=== PATIENT | male | born 1945 | race Caucasian/White ===

== ENCOUNTER 2018-01-19 04:51 | Emergency (ER) | payer OTHER, MEDICAID ==
[~2018-01-19] VITALS: Ht 172.7 cm; Wt 78.0 kg
[~2018-01-19 04:51] MED LIST: ACETAMINOPHEN325 M1 OR; ASPIR 8181 MG PO; ASPIRIN325 OR; ATORVASTATIN CA40 MG PO; BACLOFEN20 MG PO; CALCIUM 500 +1 EAC5 PO; COLACE100 MG PO; COREG OR; COREG6.25 MG PO; COUMADIN 5 MG TA5 M1; CYMBALTA60 MG PO; DIABETA 5MG TABL5 MG PO; DIAZEPAM2.5 MG PO; DULCOLAX STOOL100 MG OR; DUONEB 2.5-0.5 M3 ML INH; FLOMAX0.4 MG PO; GLUCOPHAGE1000 MG PO; HUMALOG100 UNIT/1 SUBQ; HYDROCODON-ACE1 EAC7 PO; INSPRA25 MG PO; KEFLEX500 MG PO; LANTUS100 UNIT/M SUBQ; LASIX 40 MG TAB40 M2 PO; LEVEMIR; LISINOPRIL2.5 MG OR; METOLAZONE 2.52.5 M1 PO; MINIPRIN81 MG PO; MIRALAX17 GM PO; MOM OR; MYRBETRIQ25 MG PO; NAPROSYN500 MG PO; NEURONTIN 400400 M1 PO; NIACIN 500 MG500 M1 PO; NORCO 5-325 TA1 EACH PO; OMEGA-31000 MG PO; POTASSIUM20 PO; PRADAXA150 MG PO; PRAMIPEXOLE D0.25 MG PO; SIMVASTATIN80 MG PO; TEGRETOL XR100 MG OR; VENTOLIN HFA 1818 GM INH; VESICARE10 M1 PO; VITAMIN D31000 UNI2 PO; ZANTAC 150MG T150 MG PO; ZINC50 M1 PO
[2018-01-19] MEDS ORDERED: CARVEDILOL3.125 MG (04:59)
[2018-01-19] MEDS ORDERED: ZINC50 M1 (04:59)
[2018-01-19] MEDS ORDERED: POTASSIUM20 (05:00)
[2018-01-19] MEDS ORDERED: MIRALAX17 GM (05:00)
[2018-01-19] MEDS ORDERED: HUMALOG100 UNIT/1 (05:01)
[2018-01-19] MEDS ORDERED: METOLAZONE 2.52.5 M1 (05:01)
[2018-01-19] MEDS ORDERED: ALBUTEROL (05:01)
[2018-01-19] MEDS ORDERED: LANTUS100 UNIT/M (05:01)
[2018-01-19] MEDS ORDERED: IPRATROPIU0.2 MG/1 M (05:02)
[2018-01-19 05:26] LABS: HEMATOCRIT 45.4 % (42.0-52.0); HEMOGLOBIN 15.2 gm/dL (14.0-18.0); MCHC 33.4 g/dL (28.0-37.0); RDW-CV 13.3 % (10.5-14.5)
[2018-01-19 05:28] LABS: ABSOLUTE EOSINOPHILS 0.2 thou/uL (0.0-0.7); ABSOLUTE LYMPHOCYTES 2.4 thou/uL (0.8-5.3); ABSOLUTE MONOCYTES 0.9 thou/uL (0.0-1.2); ABSOLUTE NEUTROPHILS 5.6 thou/uL (1.6-8.1); BASOPHILS 0.5 %; EOSINOPHILS 1.8 %; LYMPHOCYTES 25.9 %; MCH 30.6 pg (26.0-34.0); MCV 91.6 fL (80.0-100.0); MONOCYTES 9.8 %; MPV 8.3 fl. (7.2-11.1); NUCLEATED RBCS 0 /100WBC; PLATELET COUNT* 199 thou/uL (150-400); RBC 4.95 mil/uL (4.50-6.00); WBC 9.1 thou/uL (4.0-11.0)
[2018-01-19 06:18] LABS: ANION GAP 9 mmol/L (7-16); BUN 30 mg/dL (7-18); CALCIUM 9.4 mg/dL (8.5-10.1); CHLORIDE 100 mmol/L (98-107); CO2 30 mmol/L (21-32); CREATININE 1.1 mg/dL (0.6-1.3); GLUCOSE 98 mg/dL (70-99); SODIUM 139 mmol/L (136-145)
[2018-01-19 06:19] LABS: APTT 30.6 Seconds (25.0-31.3); INR 1.2
[2018-01-19 06:26] LABS: POTASSIUM 2.9 mmol/L (3.5-5.1)
[2018-01-19 06:37] LABS: ALKALINE PHOSPHATASE 101 U/L (46-116); CK-MB MASS 1.2 ng/mL (<0.5-3.6); NT-PRO BRAIN NAT PEPTIDE 158 pg/mL (<300); SGOT 20 U/L (15-37); SGPT 18 U/L (30-65); TOTAL BILIRUBIN 0.5 mg/dL (<0.1-1.0); TOTAL PROTEIN 6.8 g/dL (6.4-8.2); TROPONIN-I LEVEL <0.06 ng/mL (<0.06)
[2018-01-19 06:49] LABS: BE 4.6 mmol/L (-2 to +3); HCO3 26.6 mmol/L (22.0-26.0); PCO2 31.9 mmHg (35.0-45.0); pH 7.539 (7.340-7.450)
[2018-01-19 06:51] LABS: PO2 188.5 mmHg (75.0-100.0)
[2018-01-19 06:51] LABS: URINE BILIRUBIN NEGATIVE (Negative); URINE BLOOD TRACE (Negative); URINE CLARITY CLEAR; URINE COLOR YELLOW; URINE GLUCOSE-RANDOM NEGATIVE (Negative); URINE KETONES NEGATIVE (Negative); URINE LEUKOCYTES-REFLEX NEGATIVE (Negative); URINE NITRITE-REFLEX NEGATIVE (Negative); URINE PROTEIN NEGATIVE (Negative); URINE UROBILINOGEN 0.2 E.U./dl (0.2-1.0)
[2018-01-19 07:07] LABS: AMP/METHAMP Negative (Negative); BARBITURATES Negative (Negative); BENZODIAZEPINES Negative (Negative); COCAINE Negative (Negative); METHADONE Negative (Negative); OPIATES POSITIVE (Negative); PCP Negative (Negative); THC Negative (Negative)
[2018-01-19 07:10] LABS: SALICYLATE < 2.8 mg/dL (2.8-20.0)
[2018-01-19 07:12] LABS: ACETAMINOPHEN < 2 ug/mL (10-30)
[2018-01-19 08:45] VITALS: BP 189/86
--- NOTE | 2018-01-19 12:51 | EKG ---
[place] [address] ELECTROCARDIOGRAM REPORT Name: LAURYNANIKET GUDINO [id number] Admission: 01/19/18 Attend Phys: Discharge: 01/19/18 Date of : 49 Report #: [id number] THIS REPORT FOR: //name// [facility] ED Test Date: 2018-01-19 Test Time: 06:29:48 Pat Name: ANIKET COMBS Department: Room: Gender: M Readiness Paraprofessional: KASSI : 1945 Requested By: Des Shook Order Number: [id number] MD: Felice Hameed Measurements Intervals [place] Rate: 68 P: 61 UT: 211 QRS: 3 QRSD: 123 T: 212 QT: 437 QTc: 465 Interpretive Statements Sinus rhythm with intermittent atrial pacing Probable inferior infarct, age indeterminate Compared to ECG 01/18/2011 10:45:13 Intraventricular conduction delay now present Myocardial infarct finding now present T-wave abnormality no longer present Possible ischemia no longer present Prolonged QT interval no longer present Electronically Signed On 01-19-2018 12:50:56 COMM[employer]ITY SERVICE DIRECTOR by Felice Hameed [email or web address] <ELECTRONICALLY SIGNED> By: Felice Hameed MD, FACC 01/19/18 1250 [id number] [id number] Felice Hameed MD, [facility] /EPI
== END 2018-01-19 08:38 | disposition short-term general hospital (02) ==
LOC: M.ERS 04:51
PROVIDERS: Family Medicine
DX: R41.82 Altered mental status, unspecified (principal); E87.6 Hypokalemia; I11.0 Hypertensive heart disease with heart failure; I50.9 Heart failure, unspecified; F10.20 Alcohol dependence, uncomplicated; E78.5 Hyperlipidemia, unspecified; E11.8 Type 2 diabetes mellitus with unspecified complications; I48.91 Unspecified atrial fibrillation; G47.30 Sleep apnea, unspecified; I25.2 Old myocardial infarction; F32.9 Major depressive disorder, single episode, unspecified; F41.9 Anxiety disorder, unspecified; Z87.891 Personal history of nicotine dependence; Z88.6 Allergy status to analgesic agent; Z88.8 Allergy status to other drugs, medicaments and biological substances; Z79.4 Long term (current) use of insulin; Z91.09 Other allergy status, other than to drugs and biological substances